=== PATIENT | female | born 1995 | race Two or more races ===

== ENCOUNTER 2018-03-13 06:54 | Inpatient (IN) | payer OTHER ==
[~2018-03-13] VITALS: Ht 152.4 cm; Wt 113.0 kg
[2018-03-13] MEDS ORDERED: PRENATAL 19 TA1 EAC1 PO (08:44)
== END 2018-03-15 16:30 | DRG 775 ==
LOC: LDR 06:54 → OB/GYN 06:54 → LDR 14:24 → OB/GYN 21:04
PROC: 10E0XZZ Delivery of Products of Conception, External Approach (ICD-10-PCS; principal; 2018-03-13)
PROC: 10907ZC Drainage of Amniotic Fluid, Therapeutic from Products of Conception, Via Natural or Artificial Opening (ICD-10-PCS; 2018-03-13)
PROC: 3E0P7VZ Introduction of Hormone into Female Reproductive, Via Natural or Artificial Opening (ICD-10-PCS; 2018-03-13)
PROC: 3E033VJ Introduction of Other Hormone into Peripheral Vein, Percutaneous Approach (ICD-10-PCS; 2018-03-13)
PROC: 4A1HXCZ Monitoring of Products of Conception, Cardiac Rate, External Approach (ICD-10-PCS; 2018-03-13)
DX: O48.0 Post-term pregnancy (principal); Z3A.40 40 weeks gestation of pregnancy; Z37.0 Single live birth